=== PATIENT | female | born 1960 ===

== ENCOUNTER 2019-06-23 13:31 | Emergency (ER) | payer MEDICAID ==
[~2019-06-23] VITALS: Ht 162.6 cm; Wt 107.0 kg
[~2019-06-23 13:31] MED LIST: KETO10TA PO
[2019-06-23] MEDS ORDERED: ONDANSETRON 2MG/ML, 2ML IVPush ONE (14:00)
[2019-06-23] MEDS ORDERED: LORazepam 2 MG/ML, 1ML IVPush ONE (14:00)
[2019-06-23] MEDS ORDERED: SODIUM CHLORIDE FLUSH 10ML SYR IVF ONE (14:00)
[2019-06-23] MEDS ORDERED: SODIUM CHLORIDE 0.9% 1,000ML IVBOLUS ONE (14:00)
[2019-06-23] MEDS ORDERED: ONDANSETRON 2MG/ML, 2ML ONE (14:05)
[2019-06-23] MEDS ORDERED: LORazepam 2 MG/ML, 1ML ONE (14:05)
--- NOTE | 2019-06-23 14:26 | NUR ---
pt presents to ED with c/o n/v, left chest pain and sob x 2 days. ekg taken in triage. repeat EKG ordered by ELIDA Mortensen, completed by edt and reviewed by erp. all monitors in place. pt medicated per emar, tolerated well.
[2019-06-23 14:28] LABS: BASOPHILS # (AUTO) 0.03 x10^3/uL (0-0.1); BASOPHILS % (AUTO) 0 % (0-1); EOSINOPHILS # (AUTO) 0.05 x10^3/uL (0-0.4); EOSINOPHILS % (AUTO) 1 % (1-7); LYMPHOCYTES # (AUTO) 0.67 x10^3/uL (1-3.4); LYMPHOCYTES % (AUTO) 12 % (22-44); MD NO; MEAN CORPUSCULAR HEMOGLOBIN 31.6 pg (27.0-34.8); MEAN CORPUSCULAR VOLUME 95.7 fL (80-100); MEAN PLATELET VOLUME 8.1 fL (7.4-10.4); MONOCYTES # (AUTO) 0.21 x10^3/uL (0.2-0.8); MONOCYTES % (AUTO) 4 % (2-9); NEUTROPHILS # (AUTO) 4.74 x10^3/uL (1.8-6.8); NEUTROPHILS % (AUTO) 83 % (42-75); PLATELET COUNT 183 x10^3/uL (130-400); RED BLOOD COUNT 4.78 x10^6/uL (3.82-5.3); RED CELL DISTRIBUTION WIDTH 17.8 % (9.6-15.2)
[2019-06-23] MEDS ORDERED: FAMOTIDINE 20 MG/2 ML IVPush ONE (14:30)
[2019-06-23 14:40] LABS: ALANINE AMINOTRANSFERASE 73 U/L (12-78); ALBUMIN 3.3 g/dL (3.4-5.0); ANION GAP 9 mmol/L (5-15); CALCIUM 8.4 mg/dL (8.5-10.1); CHLORIDE 107 mmol/L (98-107); CREATININE 0.74 mg/dL (0.55-1.02)
[2019-06-23 14:44] LABS: ALKALINE PHOSPHATASE 125 U/L (45-117); TOTAL PROTEIN 6.7 g/dL (6.4-8.2); TROPONIN I < 0.015 ng/mL (0.000-0.045)
--- NOTE | 2019-06-23 14:56 | NUR ---
report given to MARTHA Negrete.
[2019-06-23] MEDS ORDERED: FAMOTIDINE 20 MG/2 ML ONE (15:05)
--- NOTE | 2019-06-23 15:09 | NUR ---
RECEIVED REPORT AND ASSUMED PT. CARE. PT. REMAINS MONITORED. VSS. PT. WAS MEDICATED ORDERED. SIDERAILS REMAIN UP X 2 WITH THE CALL LIGHT IN PLACE.
--- NOTE | 2019-06-23 16:13 | NUR ---
PT.'S REPEAT EKG WAS DONE. PT. REMAINS MONITORED VITALS STABLE. PT. DENIES PAIN AT THIS TIME.
[2019-06-23] MEDS ORDERED: KETOROLAC 30 MG/1 ML ONE (16:57)
[2019-06-23] MEDS ORDERED: KETOROLAC 30 MG/1 ML IVPush ONE (17:00)
[2019-06-23 18:15] VITALS: BP 122/65
--- NOTE | 2019-06-23 18:16 | NUR ---
BREAK RN: TOLLERATING PO FLUIDS AND CRACKERS. PAIN NOW 11/14, VSS. Patient/Caregiver given discharge instructions and they have confirmed that they understand the instructions. Patient ambulatory with steady gait. TAXI VOUCHER PROVIDED
== END 2019-06-23 18:22 | disposition home or self-care (01) ==
LOC: ED 18:00
DX: R11.2 Nausea with vomiting, unspecified (principal); R07.89 Other chest pain; E87.6 Hypokalemia; I10 Essential (primary) hypertension; F17.200 Nicotine dependence, unspecified, uncomplicated
CPT/HCPCS: 36415; 71045; 74021; 80053; 83690; 84484; 85025; 93005; 96361; 96374; 96375; 99284; J1885; J2060; J2405; J3490; J7030